=== PATIENT | female | born 1930 | race Caucasian/White ===

== ENCOUNTER 2017-01-03 16:08 | Emergency (ER) | payer MEDICARE, OTHER ==
[2017-01-03 17:10] VITALS: BP 141/61
--- NOTE | 2017-01-03 17:23 | UC ---
Skin Complaint HPI - HPI Summary HPI Summary: Pt presents with c/o tender red 4th finger right hand that began after getting a "hang nail" ~ 1 week ago. C/o redness tenderness in DIP joint right index finger that began 2-3 days ago. - History of Current Complaint Chief Complaint: [facility] Time Seen by Provider: 01/03/17 17:12 Stated Complaint: SWOLLEN FINGER Hx Obtained From: Patient ?: No Onset/Duration: Sudden Onset - right index finger, Gradual Onset - right 4th finger Skin Exposure Onset/Duration: Days Ago Timing: Constant Onset Severity: Mild Current Severity: Mild Location: Hand (Right) - 2nd, 4th Character: Redness Aggravating Factor(s): Touch Alleviating Factor(s): Unknown Associated Signs & Symptoms: Positive: Tenderness - Allergy/Home Medications Allergies/Adverse Reactions: Allergies Allergy/AdvReac Type Severity Reaction Status Date / Time Sulfa Antibiotics Allergy Hives Verified 01/03/17 17:10 Home Medications: Home Medications Potassium Chlor TAB* [Klor Con ER TAB 10 MEQ*] 10 meq PO DAILY 01/03/17 [ History Confirmed 01/03/17] Review of Systems Constitutional: Negative Skin: Other - erythema, mild swelling Eyes: Negative ENT: Negative Respiratory: Negative Cardiovascular: Negative Gastrointestinal: Negative Genitourinary: Negative Motor: Negative, Other - swelling at right DIP joint Neurovascular: Negative Musculoskeletal: Myalgia Neurological: Negative Psychological: Negative Is Patient Immunocompromised?: No All Other Systems Reviewed And Are Negative: Yes PMH/Surg Hx/FS Hx/Imm Hx Previously Healthy: Yes - Surgical History Surgical History: Unable to Obtain/Confirm - Family History Known Family History: Positive: Cardiac Disease, Other - NONCONTRIBUTORY - Social History Occupation: Retired Lives: With Family Alcohol Use: None Substance Use Type: None Smoking Status (MU): Former Smoker Have You Smoked in the Last Year: No Physical Exam Triage Information Reviewed: Yes Appearance: Well-Appearing Vital Signs: Initial Vital Signs Temp 98.5 F 01/03/17 17:05 Pulse 93 01/03/17 17:05 Resp 16 01/03/17 17:05 BP 141/61 01/03/17 17:05 Pulse Ox 96 01/03/17 17:05 Vital Signs Reviewed: Yes Eye Exam: Normal ENT Exam: Normal Respiratory: Positive: No respiratory distress Musculoskeletal Exam: Other Musculoskeletal: Positive: Edema @ - right index finger DIP joint Neurological Exam: Normal Psychological Exam: Normal Skin Exam: Other - right 4th and 1st finger erythema, Course/Dx - Differential Diagnoses - Skin Complaint Differential Diagnoses: Cellulitis, Other - gout - Diagnoses Provider Diagnoses: cellulitis. gout Discharge - Discharge Plan Condition: Stable Disposition: HOME Prescriptions: Cephalexin CAP* [Keflex 500 CAP*] 500 mg PO Q12H #10 cap Patient Education Materials: Cellulitis (ED), Gout (ED) Referrals: Chioma Claros MD [Primary Care Provider] - If Needed Additional Instructions: Please take your gout medication that has been previously prescribed for you as directed. Please follow up with your pCP or return to clinic as needed.
== END 2017-01-03 17:31 | disposition home or self-care (01) ==
LOC: UCCORT 16:08
DX: L03.011 Cellulitis of right finger (principal); M10.9 Gout, unspecified; Z88.2 Allergy status to sulfonamides; Z87.891 Personal history of nicotine dependence
CPT/HCPCS: 99212; G0463